=== PATIENT | male | born 1955 | race Caucasian/White ===

== ENCOUNTER 2020-05-05 20:44 | Emergency (ER) | payer OTHER ==
[2020-05-05] MEDS ORDERED: KETOROLAC TROMETHAMINE 30 MG/1 ML VIAL ONE (20:51)
[2020-05-05] MEDS ORDERED: ONDANSETRON 4 MG/2 ML VIAL ONE (20:51)
[2020-05-05] MEDS ORDERED: SODIUM CHLORIDE 1,000 ML IV ONE (20:52)
[2020-05-05] MEDS ORDERED: KETOROLAC TROMETHAMINE 30 MG/1 ML VIAL IVPUSH ONE (20:53)
[2020-05-05] MEDS ORDERED: ONDANSETRON 4 MG/2 ML VIAL IVPUSH ONE (20:53)
[2020-05-05 21:07] VITALS: BP 128/98; PULSE 71; TEMP 97.9; BMI 27.8
[2020-05-05 21:24] LABS: BASO % 0.3 % (0-2.0); EOS % 0.3 % (0-4.5); HEMATOCRIT 43.5 % (35.4-49); LYMPH % 5.4 % (8-40); MCH 32.8 pg (25.7-33.7); MCHC 34.5 g/dl (32.0-35.9); MEAN CELL VOLUME 95.2 fl (80-96); MEAN PLT VOLUME 9.6 fl (7.5-11.1); MONO % 6.5 % (3.8-10.2); NEUT % 87.5 % (42.8-82.8); PLATELET COUNT 210 K/MM3 (134-434); RBC 4.57 M/mm3 (4.00-5.60); WHITE BLOOD COUNT 11.2 K/mm3 (4.0-10.8)
[2020-05-05 21:29] LABS: BILIRUBIN,TOTAL 0.5 mg/dl (0.2-1); CALCIUM 8.7 mg/dl (8.5-10); CREATININE 1.2 mg/dl (0.55-1.3); POTASSIUM 3.6 mmol/L (3.5-5.1); TOT PROT 6.3 g/dl (6.4-8.2)
--- NOTE | 2020-05-05 23:13 | PDOC ---
Documentation entered by Charity Alonso SCRIBE, acting as scribe for Brittaney Han MD. Brittaney Han MD: This documentation has been prepared by the nbaibe, Charity Alonso SCRIBE, under my direction and personally reviewed by me in its entirety. I confirm that the documentation accurately reflects all work, treatment, procedures, and medical decision making performed by me. History of Present Illness - General Chief Complaint: Pain Stated Complaint: KIDNEY PAIN History Source: Patient Exam Limitations: No Limitations - History of Present Illness Initial Comments: 05/05/20 21:01 The patient is a 64-year-old male who presents to the emergency department with left flank pain. The patient reports he had an onset of left testicular pain that progressed and radiated up to the left lower quadrant and left flank, associated with nausea and multiple episodes of vomiting. Denies a history of kidney stones. PAST MEDICAL HISTORY: Autoimmune liver disease. PAST SURGICAL HISTORY: no significant history FAMILY HISTORY: no pertinent history SOCIAL HISTORY: Pt lives with family and is self-employed. MEDICATIONS: reviewed ALLERGIES: As per nursing notes PCP: Dr. Perez Review of system: General: No fevers or chills, no weakness, no weight loss HEENT: No change in vision. No sore throat. No ear pain CardioVascular: No chest pain or shortness of breath Respiratory:No cough, or wheezing. Gastrointestinal: +left flank pain, nausea and vomiting. Denies diarrhea or constipation. Genitourinary: No dysuria, hematuria, or frequency Musculoskeletal: No joint or muscle pain or swelling Neurologic: No headache, vertigo, dizziness or loss of consciousness Psychiatric: nor depression Skin: No rashes or easy bruising Endocrine: no increased thirst or abnormal weight change Allergic: no skin or latex allergy All other systems reviewed and normal Physical exam: GENERAL: The patient is awake, alert, and fully oriented, in no acute distress. HEAD: Normal with no signs of trauma. EYES: Pupils equal, round and reactive to light, extraocular movements intact, sclera anicteric, conjunctiva clear. ABDOMEN: +left flank pain. No left CVA tenderness. EXTREMITIES: Normal range of motion, no edema. NEUROLOGICAL: Normal speech, normal gait. PSYCH: Normal mood, normal affect. SKIN: Warm, Dry, normal turgor, no rashes or lesions noted. Past History - Medical History Allergies/Adverse Reactions: Allergies Allergy/AdvReac Type Severity Reaction Status Date / Time No Known Allergies Allergy Verified 05/05/20 21:56 Home Medications: Ambulatory Orders Azathioprine [Imuran] 50 mg PO DAILY tablet 07/16/14 Budesonide [Budesonide Ec] 6 mg PO DAILY 08/05/16 Ondansetron [Zofran *Odt*] 8 mg SL TID #12 od.tablet 05/05/20 Oxycodone HCl/Acetaminophen [Percocet 5-325 mg Tablet] 1 - 2 tab PO Q4H #20 tablet MDD 8 05/05/20 GI Disorders: Yes (AUTOIMMUNE LIVER DISEASE) Disorders: Yes - Immunization History Immunization Up to Date: Yes - Psycho-Social/Smoking History Smoking History: Never smoked Have you smoked in the past 12 months: No Number of Cigarettes Smoked Daily: 0 ED Treatment Course - LABORATORY CBC & Chemistry Diagram: 05/05/20 21:00 05/05/20 20:56 Discharge - Discharge Information Problems reviewed: Yes Clinical Impression/Diagnosis: Renal colic on left side Condition: Stable Disposition: HOME - Admission No - Additional Discharge Information Prescriptions: Oxycodone HCl/Acetaminophen [Percocet 5-325 mg Tablet] 1 - 2 tab PO Q4H #20 tablet MDD 8 Ondansetron [Zofran *Odt*] 8 mg SL TID #12 od.tablet - Follow up/Referral Referrals: Shahid Perez MD [Primary Care Provider] - Chace Brownlee MD [Staff Physician] - - Patient Discharge Instructions Additional Instructions: For the pain take ibuprofen if you need something stronger I have sent a prescription to your pharmacy for Percocet. Your nausea take Zofran 1 tablet as often as every 6-8 hours. Follow-up with a urologist. If you need a urologist call Dr. Brownlee. Return to the emergency department immediately with ANY new, persistent or worsening symptoms. Continue any medications as previously prescribed by your physician. You should follow up with your primary doctor as soon as possible regarding today's emergency department visit. . Please make sure your doctor reviews the results of your emergency evaluation. Thank you for coming to the Emergency Department today for your care. It was a pleasure to see you today. Please note that your evaluation is INCOMPLETE until you follow-up with your doctor. - Post Discharge Activity
== END 2020-05-05 23:17 | disposition home or self-care (01) ==
LOC: SUPCPDRO 20:44 → FER 20:44
PROC: 3E0333Z Introduction of Anti-inflammatory into Peripheral Vein, Percutaneous Approach (ICD-10-PCS; principal; 2020-05-05)
PROC: 3E033GC Introduction of Other Therapeutic Substance into Peripheral Vein, Percutaneous Approach (ICD-10-PCS; 2020-05-05)
PROC: 3E0337Z Introduction of Electrolytic and Water Balance Substance into Peripheral Vein, Percutaneous Approach (ICD-10-PCS; 2020-05-05)
DX: N23 Unspecified renal colic (principal)
CPT/HCPCS: 36415; 74176-TC; 80053; 85025; 99285-25

== ENCOUNTER 2020-09-16 10:15 | Emergency (ER) | payer OTHER | END 2020-09-16 11:21 | disposition home or self-care (01) | LOC: JVIRT 10:15 | DX: Z11.52 Encounter for screening for COVID-19 (principal) | CPT/HCPCS: 36415; 86769; C9803; Q3014-GT; U0003 ==

== ENCOUNTER 2024-08-22 12:03 | Observation (INO) | payer OTHER ==
[2024-08-22 13:30] LABS: INR 1.03 (0.83-1.09); PROTHROMBIN TIME (PATIENT) 11.7 SEC (9.7-13.0)
[2024-08-22 13:33] LABS: ACTIVATED PTT 35.3 SECONDS (25.2-36.5)
[2024-08-22 13:36] LABS: HEMATOCRIT 47.1 % (35.4-49); HEMOGLOBIN 15.5 G/dL (11.7-16.9); MCHC 32.8 g/dl (32.0-35.9); MEAN CELL VOLUME 91.4 fl (80-96); MEAN PLT VOLUME 9.6 fl (7.5-11.1); PLATELET COUNT 205.8 10^3/uL (134-434); RBC 5.15 10^6/uL (4.00-5.60); RDW 14.2 % (11.9-15.9)
[2024-08-22 13:45] LABS: PLATELET ESTIMATE ADEQUATE
[2024-08-22 13:48] LABS: ALBUMIN 4.4 g/dl (3.4-5.0); BILIRUBIN,TOTAL 0.5 mg/dl (0.2-1); CALCIUM 9.2 mg/dl (8.5-10.1); CREATININE 0.8 mg/dl (0.6-1.3); POTASSIUM 3.9 mmol/L (3.5-5.1); TOT PROT 6.3 g/dl (6.4-8.2)
[2024-08-22 18:48] VITALS: BMI 29.7
[2024-08-22] MEDS: APIXABAN 5 MG TABLET PO SCH (21:50)
[2024-08-23 09:00] LABS: ALBUMIN 4.2 g/dl (3.4-5.0); CALCIUM 9.3 mg/dl (8.5-10.1); CREATININE 0.9 mg/dl (0.6-1.3); POTASSIUM 4.2 mmol/L (3.5-5.1); TOT PROT 6.3 g/dl (6.4-8.2)
[2024-08-23 09:35] LABS: BASO % 0.6 % (0-2.0); EOS % 3.2 % (0-4.5); HEMATOCRIT 46.4 % (35.4-49); HEMOGLOBIN 15.3 GM/dL (11.7-16.9); LYMPH % 20.4 % (8-40); MCH 30.3 pg (25.7-33.7); MCHC 32.9 g/dl (32.0-35.9); MEAN CELL VOLUME 92.2 fl (80-96); MEAN PLT VOLUME 9.1 fl (7.5-11.1); NEUT % 66.8 % (42.8-82.8); PLATELET COUNT 227 10^3/uL (134-434); RBC 5.04 M/mm3 (4.00-5.60); WHITE BLOOD COUNT 8.3 K/mm3 (4.0-10.0)
[2024-08-23] MEDS: metoPROLOL SUCCINATE 25 MG TAB.SR.24H (FP) PO SCH (09:38)
[2024-08-23] MEDS: azaTHIOprine 50 MG TABLET PO SCH (10:38)
[2024-08-24] MEDS: ASPIRIN 81 MG CHEWABLE TABLETS PO SCH (13:00)
[2024-08-24] MEDS: ATORVASTATIN CA 40 MG TABLET (FP) PO ONE (13:00)
[2024-08-24 14:30] VITALS: BP 127/85; PULSE 67; RESP 18; TEMP 97.7
== END 2024-08-24 15:30 | disposition home or self-care (01) ==
LOC: FER 12:03 → FM/S 15:48
PROVIDERS: ADMIT Internal Medicine
DX: G45.9 Transient cerebral ischemic attack, unspecified (principal); R20.0 Anesthesia of skin; R53.1 Weakness; M79.602 Pain in left arm; F80.1 Expressive language disorder; I48.91 Unspecified atrial fibrillation; I77.82 Antineutrophilic cytoplasmic antibody [ANCA] vasculitis; I10 Essential (primary) hypertension; E78.5 Hyperlipidemia, unspecified; Z79.01 Long term (current) use of anticoagulants
CPT/HCPCS: 36415; 70450-TC; 70496-TC; 70498-TC; 70551-TC; 71045-TC-FY; 80053; 80061; 81003; 81015; 82550; 83036; 83735; 84443; 84484; 85025; 85027; 85610; 85730; 86850; 86900; 86901; 93005; 93306-TC; 99285-25; G0378

== ENCOUNTER 2025-03-07 18:10 | Emergency (ER) | payer OTHER ==
[2025-03-07 18:52] LABS: ABSOLUTE IMMATURE GRANULOCYTES 0.02 x10^3/uL (0.0-0.031); BASOPHILS # 0.06 x10^3/uL (0.01-0.08); EOSINOPHIL % 2.3 % (0.8-7.0); EOSINOPHILS # 0.21 x10^3/uL (0.04-0.54); MCHC 34.4 g/dl (32.3-36.5); MEAN CELL VOLUME 91.4 fl (79.0-92.2); MEAN PLT VOLUME 10.4 fl (9.4-12.4); MONOCYTE # 0.69 x10^3/uL (0.30-0.82); MONOCYTE % 7.5 % (5.3-12.2); RDW 13.1 % (12.2-16.4)
[2025-03-07 19:08] VITALS: RESP 18; TEMP 98.4; BMI 29.6
[2025-03-07 19:17] LABS: ALK PHOS 79.0 U/L (45-117); CO2 27.0 mmol/L (21-32); CREATININE 0.9 mg/dl (0.6-1.3); GLUCOSE,RANDOM 157.0 mg/dl (74-106); SGOT/AST 19.0 U/L (15-37); SGPT/ALT 16.0 U/L (7-52); TOT PROT 6.1 g/dl (6.4-8.2)
[2025-03-07 22:05] VITALS: BP 140/89; PULSE 68
== END 2025-03-07 22:04 | disposition home or self-care (01) ==
LOC: FER 18:10
DX: N21.0 Calculus in bladder (principal); N13.30 Unspecified hydronephrosis; R10.31 Right lower quadrant pain; R31.9 Hematuria, unspecified
CPT/HCPCS: 36415; 74177-TC; 80053; 81003; 81015; 83690; 85025; 99285-25; Q9967